=== PATIENT | female | born 1990 | race Caucasian/White ===

== ENCOUNTER 2020-07-12 10:50 | Emergency (ER) | payer OTHER, SELFPAY ==
[2020-07-12 10:55] VITALS: BP 127/87; PULSE 91; RESP 16; TEMP 37.4; O2SAT 100
[2020-07-12 10:57] VITALS: BP 127/87; PULSE 91; RESP 16; TEMP 37.4; O2SAT 100
--- NOTE | 2020-07-12 10:57 | ED.URI ---
HPI - URI/Sore Throat General Chief Complaint: Upper Respiratory Infection Stated Complaint: sore throat Time Seen by Provider: 07/12/20 10:57 Source: patient Mode of arrival: ambulatory Limitations: no limitations History of Present Illness HPI Narrative: Kathleen Dixon is a 29 yo female with no PMH who comes to express care with sore throat-rediagnosed with Covid on Friday. Patient started having sore throat fever fatigue and general malaise last Friday. Sore throat is gotten worse and she states that the pain is in a 10 with swallowing and she has white spots on her tonsils Related Data Home Medications Medication Instructions Recorded Confirmed norgestrel-ethinyl estradiol 1 tablet PO DAILY 07/12/20 07/12/20 [Low-Ogestrel (28)] Allergies Allergy/AdvReac Type Severity Reaction Status Date / Time No Known Allergies Allergy Verified 07/12/20 10:56 Review of Systems Review of Systems: Narrative: CONSTITUTIONAL: Denies fever, chills, sweats. EYES: Denies visual changes, redness, discharge. ENT: Denies rhinorrhea, congestion, has sore throat, no otalgia. CARDIOVASCULAR: Denies chest pain, palpitations, edema. RESPIRATORY: Denies dyspnea, wheezing, cough GASTROINTESTINAL: Denies abdominal pain, nausea, vomiting, diarrhea. GENITOURINARY: Denies dysuria, hematuria, abnormal discharge SKIN: Denies rash or itching. NEUROLOGIC: Denies numbness, or focal weakness. PSYCHIATRIC: Denies anxiety or depression. PMFSH Past Medical History Medical History No acute medical problems Family History Family History Other No acute medical problems Social History Social History (Updated 07/12/20 @ 11:16 by Adela Rocha CNP) Smoking status: Never smoker Alcohol intake: never Comments At time of signature, I agree with nursing past medical, surgical, social and family history. There is no relevant family history pertinent to the presenting complaint. Exam Narrative: Exam Narrative: GENERAL: This is a well-nourished, well-developed patient, in mild distress. Looks like she does not feel well eyes are watery HEAD: normocephalic, atraumatic. EYES: Sclera clear/white. Vision is grossly intact. EARS: External ears normal, auditory canals clear and without drainage, TMs normal without perforation on L, on right has fluid behind TM. Hearing grossly intact. NOSE: External nose normal without nasal discharge, nares without redness, mild rhinorrhea. THROAT: Mucous membranes moist, posterior pharynx erythema with white spots on tonsils, difficulty swallowing NECK: Neck supple, right-sided submandibular lymph node tenderness CARDIOVASCULAR: Regular rate and rhythm without murmurs, gallops, or rubs. RESPIRATORY: Clear to auscultation. Breath sounds equal bilaterally. No wheezes, rales, or rhonchi. GASTROINTESTINAL: Abdomen soft, non-tender, SKIN: warm, intact with no suspicious lesions or rash, good texture and turgor. NEURO: awake, alert, and oriented to person, place and time. There were no obvious focal neurologic abnormalities. Steady gait EXTREMITIES: Normal range of motion. BACK: Nontender without deformity Course Course Emergency Course: Patient came with sore throat to [facility] and symptomatic of Covid last Friday and was diagnosed on Friday-has been quarantined since that time her throat sore throat has gotten worse in the last 24 hours and she has difficulty swallowing Strep test done -negative result. based on exam started on penicillin the 500 mg 3 times daily x10 days, fluids and continuing quarantine as well as taking Claritin are Zyrtec for sinus drainage Follow-up with PCP Vital Signs Vital signs: Vital Signs Temperature 99.4 F 07/12/20 10:55 Pulse Rate 91 07/12/20 10:55 Respiratory Rate 16 07/12/20 10:55 Blood Pressure 127/87 07/12/20 10:55 Pulse Oximetry 100
== END 2020-07-12 11:35 | disposition home or self-care (01) ==
PROVIDERS: Emergency Provider Nurse Practitioner
DX: J02.9 Acute pharyngitis, unspecified (principal)
CPT/HCPCS: 87081; 87880; 99203; G0463

== ENCOUNTER 2022-12-07 09:56 | Emergency (ER) | payer OTHER, SELFPAY ==
--- NOTE | ~2022-12-07 | CT_ITS ---
EXAMINATION: CT abdomen pelvis w con INDICATION: Epigastric abdominal pain TECHNIQUE: Computed tomographic images of the abdomen and pelvis were obtained after the administrati on of 100 cc of Omnipaque 350 intravenous contrast. The dose-length product (DLP) was 852.81 mGy-cm. Automated exposure control and iterative reconstruction technique were employed. COMPARISON: None available FINDINGS: The lung bases are clear. The heart size is normal. The liver, spleen, pancreas, gallbladde r, and adrenal glands are normal. There appears to be mild wall thickening of the body and antrum of the stomach. The right kidney is unremarkable. There is a duplicated collecting system on the left wi th two ureters inserting into the bladder. 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 No pathologically enlarged abdominal or pelvic lymph n odes are identified. No free intraperitoneal gas or evidence of bowel obstruction. There is a 3.2 cm cyst of the left adnexa. IMPRESSION: 1. Possible mild wall thickening in the body and antrum of the stomach. Finding could reflect gastrit is versus incomplete distention. 2. 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 Reviewed, dictated and finalized at location A. IMPRESSION: 1. Possible mild wall thickening in the body and antrum of the stomach. Finding could reflect gastritis versus incomplete distention. 2. Duplicated collecting system of the left kidney with ectopic insertion of th e upper pole ureter.
[2022-12-07 10:00] VITALS: BP 138/90; PULSE 114; RESP 17; TEMP 36.8; O2SAT 100
--- NOTE | 2022-12-07 10:23 | ED.ABDPAIN ---
HPI - Abdominal Pain General Chief Complaint: Abdominal Pain Stated Complaint: abd pain, vomiting Time Seen by Provider: 12/07/22 10:04 Source: patient Mode of arrival: ambulatory Limitations: no limitations History of Present Illness HPI narrative: Patient is a 31-year-old female who presents the ED with report of epigastric abdominal pain. Patient reports she was out drinking last night and did drink in excess. She developed nausea and vomiting this morning, and is unable to keep anything down. She reports having pain in her epigastric region. She has not tried anything for the pain. Patient reports having similar symptoms 8 years ago, which was contributed to gastritis at that time. Denies any diarrhea or constipation. Last bowel movement this morning and normal. Denies rectal bleeding, melena. Denies urinary symptoms. Denies fevers. Related Data Home Medications Medication Instructions Recorded Confirmed norgestrel 0.3 mg-ethinyl 1 tablet PO DAILY 07/12/20 07/12/20 estradiol 30 mcg tablet (Low-Ogestrel (28)) Allergies Allergy/AdvReac Type Severity Reaction Status Date / Time No Known Allergies Allergy Verified 12/07/22 10:19 Review of Systems Review of Systems: CONSTITUTIONAL: Denies fever, chills, or sweats. CARDIOVASCULAR: Denies chest pain. RESPIRATORY: Denies dyspnea. GASTROINTESTINAL: See HPI. GENITOURINARY: Denies dysuria or hematuria. SKIN: Denies rash or itching. MUSCULOSKELETAL: Denies back pain, joint pain, or myalgia. NEUROLOGIC: Denies headache, numbness, or weakness. All systems reviewed & are unremarkable except as noted in HPI and below PMFSH Past Medical History Medical History (Updated 12/07/22 @ 13:31 by Billie Winters PA-C) Gastritis Surgical History Surgical History No pertinent past surgical history Family History Family History Other No acute medical problems Social History Social History Smoking status: Never smoker Alcohol intake: never Exam Narrative: GENERAL: Mildly ill appearing, slightly tremulous. Well-nourished. Actively vomiting upon my evaluation. HEAD: Normocephalic, atraumatic. NECK: Supple. No adenopathy, no masses. RESPIRATORY: Airway patent, respirations nonlabored. Clear to auscultation bilaterally, no rales, rhonchi, wheezing. CARDIOVASCULAR: Tachycardic with regular rhythm without murmurs, rubs, or gallops. Radial pulses 2+ and equal bilaterally. ABDOMINAL: Soft, diffuse tenderness to palpation, worst in epigastric region/suprapubic region, nondistended, no hepatosplenomegaly. Normoactive BS. MUSCULOSKELETAL: Moves all extremities. Strength/ROM intact without gross deformities. SKIN: Warm, dry, normal color. No rashes. NEURO: A&O X3. Speech clear. Cranial nerves II-XII grossly intact. Steady gait. No ataxic movements. PSYCHIATRIC: Appropriate mood and affect. Normal interaction. Course Vital Signs Vital signs: Vital Signs Temperature 98.2 F 12/07/22 10:00 Pulse Rate 114 H 12/07/22 10:00 Respiratory Rate 17 12/07/22 10:00 Blood Pressure 138/90 12/07/22 10:00 Pulse Oximetry 100 12/07/22 10:00 Oxygen Delivery Room Air 12/07/22 10:00 Temperature 98.7 F 12/07/22 13:30 Pulse Rate 98 12/07/22 13:30 Respiratory Rate 16 12/07/22 13:30 Blood Pressure 114/73 12/07/22 13:30 Pulse Oximetry 100 12/07/22 13:30 Oxygen Delivery Room Air 12/07/22 10:00 MDM - Abdominal Pain MDM Narrative Medical decision making narrative: Patient presented to ED with epigastric abdominal pain, nausea, vomiting, report of ETOH use last night. Patient tachycardic, actively vomiting upon arrival. CBC with leukocytosis of 10.9. CMP unremarkable. Stable kidney function. Normal electrolytes. Urine with elevated pH, likely comp
[2022-12-07 10:34] LABS: Basophils Absolute Auto 0.1 K/mm3 (0.0-0.1); Basophils Percent Auto 0.7 % (0.2-1.2); Eosinophils Absolute Auto 0.1 K/mm3 (0-0.3); Eosinophils Percent Auto 0.5 % (0-4.4); Hematocrit 41.4 % (37.0-47.0); Hemoglobin 13.9 g/dL (12.0-15.0); Immature Granulocyte Absolute 0.04 K/mm3 (0.00-0.031); Immature Granulocyte Percent A 0.4 % (0-0.5); Lymphocytes Absolute Auto 1.23 K/mm3 (0.9-3.2); Lymphocytes Percent Auto 11.5 % (18.3-44.2); Mean Corpuscular HGB Conc 33.6 g/dl (32-36); Mean Corpuscular Hemoglobin 29.7 pg (26-34); Mean Corpuscular Volume 88.5 fl (80-100); Mean Platelet Volume 9.8 fl (7.4-10.4); Monocytes Absolute Auto 0.3 K/mm3 (0.1-0.6); Monocytes Percent Auto 3.1 % (2.6-8.5); Neutrophils Percent Auto 83.8 % (45.5-73.1); Platelet Count Result 442 k/mm3 (150-375); Red Blood Count 4.68 M/mm3 (4.2-5.4); Red Cell Distribution Width 12.1 % (11.5-14.5); White Blood Count 10.7 K/mm3 (4.5-10.0)
[2022-12-07 10:39] LABS: Appearance Urine Clear (Clear); Bacteria Urine None Seen /hpf; Bilirubin Urine Negative (Negative); Blood Urine Negative (Negative); Color Urine Yellow (Yellow); Glucose Urine UA Negative (Negative); Ketones Urine Negative (Negative); Leukocyte Esterase Ur Negative LEU/UL (Negative); Nitrate Urine Negative (Negative); Non Pathogenic Casts 0-2; Protein Urine 1+ mg/dL (Negative); RBC Urine 0-2 /hpf (0-2); Specific Grav Ur 1.019 (1.001-1.035); Squamous Epithelial Cell Urine Occasional /hpf (Few); Urobilinogen Urine 0.2 mg/dL (<2.0); WBC Urine 0-5 /hpf; pH Urine >=9.0 (5.0-9.0)
[2022-12-07 10:40] LABS: Add Urine Microscopic? YES
[2022-12-07] MEDS: PANTOPRAZOLE SODIUM IV 40 MG VIAL IV PUSH (10:42)
[2022-12-07] MEDS: ONDANSETRON INJ 4 MG/2 ML VIAL IV PUSH (10:42)
[2022-12-07] MEDS: SODIUM CHLORIDE 0.9% IV 1,000 ML 999 ML IV CONT ×2 (10:42→11:28)
[2022-12-07] MEDS: MORPHINE SULFATE (*CRX) 4 MG/ML INJ IV PUSH (10:42)
[2022-12-07 10:48] LABS: Alanine Aminotransferase 37 U/L (6-35); Albumin Level 5.4 g/dL (3.5-5.1); Alkaline Phosphatase 72 U/L (38-126); Anion Gap 9 mmol/L (8-16); Aspartate Amino Transferase 30 U/L (14-36); Bilirubin,Total 0.6 mg/dL (0.2-1.3); Blood Urea Nitrogen 10 mg/dL (7-17); Calcium 9.4 mg/dL (8.4-10.2); Carbon Dioxide 27 mmol/L (22-30); Chloride 108 mmol/L (98-107); Estimated CRCL calculation 106 ml/min; Estimated Glomerular Filt Rate > 60; Glucose 107 mg/dL (65-110); Lipase 30 U/L (23-300); Potassium 3.6 mmol/L (3.4-5.0); Sodium 144 mmol/L (137-145)
[2022-12-07 12:49] VITALS: BP 119/70; PULSE 99; RESP 15; O2SAT 100
--- NOTE | 2022-12-07 13:22 | PC.NURSE ---
Pt tolerated PO challenge well.
[2022-12-07 13:30] VITALS: BP 114/73; PULSE 98; RESP 16; TEMP 37.1; O2SAT 100
== END 2022-12-07 13:30 | disposition home or self-care (01) ==
PROVIDERS: Emergency Medicine; Emergency Provider Physician Assistant
DX: K29.20 Alcoholic gastritis without bleeding (principal); Q62.5 Duplication of ureter
CPT/HCPCS: 36415; 74177; 80053; 81001; 81025; 83690; 85025; 96361; 96374; 96375; 99284; C9113; J2270; J2405; J7030; Q9967